=== PATIENT | female | born 1960 | race Two or more races ===

== ENCOUNTER → 2017-09-03 | Emergency (ER) | payer OTHER ==
[~2017-09-03] VITALS: Ht 167.6 cm; Wt 95.3 kg
[~2017-09-03] MED LIST: MUPIROCIN15 GM TOP; NIZORAL SHAMPO120 ML TOP; PERMETHRIN60 GM TOP; TRIANEX430 GM TOP
== END | disposition home or self-care (01) ==
LOC: ER 10:28
DX: L30.8 Other specified dermatitis (principal); B88.2 Other arthropod infestations; B35.4 Tinea corporis